=== PATIENT | male | born 1965 | race Caucasian/White ===

== ENCOUNTER 2016-08-26 11:02 | Emergency (ER) | payer OTHER ==
[2016-08-26] MEDS ORDERED: KETOROLAC TROMETHAMINE 30 MG/1ML VIAL IVP ONE (11:43)
[2016-08-26] MEDS ORDERED: BUTORPHANOL TARTRATE 2 MG/ML VIAL IV ONE ×2 (11:43→12:35)
[2016-08-26 11:57] LABS: BASOPHILS % 0.5 (0.0-1.5); EOSINOPHILS % 2.3 % (0.0-6.8); LYMPHOCYTES # 2.1 # k/uL (0.6-4.0); MEAN CORPUSCULAR HEMOGLOBIN 32.6 pg (28.0-34.0); MONOCYTES # 0.4 # k/uL (0.0-0.9); MONOCYTES % 6.7 % (0.0-11.0); NEUTROPHILS # 3.5 # k/uL (1.4-7.7)
[2016-08-26 12:13] LABS: eGFR (African) > 60; eGFR (Non-African) 52
--- NOTE | 2016-08-26 12:43 | ED Physician Documentation ---
Abdominal Pain - HISTORIAN Historian: patient - HPI Stated Complaint: blood pressure high, abdominal distension Chief Complaint: Abdominal Pain Onset: days ago (10) Duration: waxing, waning Context: denies: out of country travel, bad food, recent trauma Quality: pain Associated Symptoms: nausea. denies: fever, chills, vomiting Exacerbated by: nothing Relieved by: nothing Further Comments: yes (51 year old male patient presents with complaint of abdominal pain and hypertension. Patient states he was at [facility] for medication refills, was sent over for evaluation of HTN and abdominal pain. Patient reports 10 days of abdominal pain. Denies vomiting, c/o diarhea today.) - ROS CONST: no problems GI/: none CVS/RESP: none EYES/ENT: none MS/SKIN/LYMPH: none NEURO/PSYCH: none - SOCIAL HX Smoking History: cigarettes - FAMILY HX Family History: denies: none - PAST HX Past History: diverticulitis Other History: diabetes Type 2, other (PTSD, anger issues, Chrohns) Surgeries/Procedures: appendectomy, cholecystectomy, other (nephrectomy) Home Medications: Ambulatory Orders Medication Instructions Recorded Allopurinol [Zyloprim] 300 mg PO DAILY 08/26/16 Clonazepam 1 mg PO QID 08/26/16 Oxcarbazepine 300 mg PO BID 08/26/16 Paroxetine HCl [Paxil] 40 mg PO DAILY 08/26/16 Prazosin HCl [Minipress] 1 mg PO HS 08/26/16 Promethazine HCl [Phenergan] 25 mg PO Q6H PRN #30 tablet 08/26/16 Ranitidine HCl 150 mg PO BID 08/26/16 Allergies/Adverse Reactions: Allergies Allergy/AdvReac Type Severity Reaction Status Date / Time divalproex sodium Allergy Intermediate Hives Verified 08/26/16 12:08 [From Depakote] Sulfa (Sulfonamide Allergy Intermediate Throat Verified 08/26/16 12:09 Antibiotics) Swelling meperidine HCl [From Demerol] AdvReac Intermediate Dizziness Verified 08/26/16 12:08 - VITAL SIGNS Vital Signs: Vital Signs Temp Pulse Resp BP Pulse Ox 97.7 F 88 18 151/90 97 08/26/16 11:18 08/26/16 11:18 08/26/16 11:18 08/26/16 11:18 08/26/16 11:18 - REVIEWED ASSESSMENTS Nursing Assessment Reviewed: No Vitals Reviewed: No ED Results Lab/Radiology - Lab Results Lab Results: Lab Results 08/26/16 08/26/16 08/26/16 11:50 11:50 11:50 WBC 6.30 K/ul K/ul (4.00-12.00) RBC 4.09 M/ul M/ul (3.90-5.20) Hgb 13.3 g/dL g/dL (12.0-18.0) Hct 38.7 % % (37.0-53.0) MCV 94.5 fl fl (80.0-100.0) MCH 32.6 pg pg (28.0-34.0) MCHC 34.4 g/dL g/dL (30.0-36.0) RDW 13.7 % % (11.3-14.3) Plt Count 142 K/mm3 K/mm3 (130-400) Neut % (Auto) 55.1 % % (39.0-79.0) Lymph % (Auto) 33.6 % % (16.0-50.0) [place] % (Auto) 6.7 % % (0.0-11.0) Eos % (Auto) 2.3 % % (0.0-6.8) Baso % (Auto) 0.5 (0.0-1.5) Neut # 3.5 # k/uL # k/uL (1.4-7.7) Lymph # 2.1 # k/uL # k/uL (0.6-4.0) [place] # 0.4 # k/uL # k/uL (0.0-0.9) Eos # 0.1 # k/uL # k/uL (0.0-0.6) Baso # 0.0 # k/uL # k/uL (0.0-0.5) Reactive Lymphs % 1.8 % % (0.0-5.0) Reactive Lymphs # 0.1 # k/uL # k/uL (0.0-0.8) Sodium 141 mmol/L mmol/L (136-145) Potassium 4.0 mmol/L mmol/L (3.5-5.0) Chloride 111 mmol/L H mmol/L (98-110) Carbon Dioxide 28 mmol/L mmol/L (20-32) BUN 24 mg/dL mg/dL (10-26) Creatinine 1.5 mg/dL mg/dL (0.4-1.5) Estimated Creat Clear 139 Est GFR ( Amer) > 60 (60 - ) Est GFR (Non-Af Amer) 52 L (60 - ) Glucose 116 mg/dL H mg/dL (70-99) Calcium 9.1 mg/dL mg/dL (8.5-10.5) Total Bilirubin 0.3 mg/dL mg/dL (0.2-1.2) AST 18 U/L U/L (0-41) ALT 22 U/L U/L (0-45) Alkaline Phosphatase 77 U/L U/L (46-116) Troponin I < 0.03 ng/mL ng/mL (0.00-0.06) Total Protein 7.3 g/dL g/dL (6.0-8.5) Albumin 4.6 g/dL g/dL (3.0-5.5) - Orders Orders: ED Orders Category Date Time Status Place Saline Lock/IV NOW Care 08/26/16 11:22 Active CBC/PLATELET/DIFF Stat Lab 08/26/16 11:50 Completed CMP Stat Lab 08/26/16 11:50 Completed TROPONIN I (cTnI) Stat Lab 08/26/16 11:50 Completed UA W/MICRO IF INDICATED Stat Lab 08/26/16 11:22 Ordered Butorphanol Tartrate [Stadol] Med 08/26/16 11:43 Discontinued 1 mg IV NOW ONE Ketorolac Tromethamine [Toradol] Med 08/26/16 11:43 Discontinued 30 mg IVP NOW ONE EKG WITH COMPARISON Stat Ther 08/26/16 11:43 Ordered Abdominal Pain Physical Exam - Physical Exam General Appearance: mild distress EENT: eye inspection normal, MAX RESPIRATORY: no resp distress, chest non-tender, breath sounds normal CVS: reg rate & rhythm, heart sounds normal, equal pulses, no murmur, no gallop , PMI nml, no JVD, no friction rub, 24 ABDOMEN: soft, no organomegaly, no abdominal bruit, no distension, tenderness ( RUQ and LLQ ), abnormal bowel sounds (hypotension) SKIN: normal color, warm/dry, NR, INT, PAL, DR EXTREMITIES: non-tender, normal range of motion, no evidence of injury, no edema , J, 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: oriented X3, CN's nml as tested, motor nml, sensation nml Vital Signs: Vital Signs Temp Pulse Resp BP Pulse Ox 97.7 F 88 18 151/90 97 08/26/16 11:18 08/26/16 11:18 08/26/16 11:18 08/26/16 11:18 08/26/16 11:18 Discharge Clincal Impression: Abdominal pain Qualifiers: Abdominal location: generalized Qualified Code(s): R10.84 - Generalized abdominal pain Prescriptions: Promethazine HCl [Phenergan] 25 mg PO Q6H PRN #30 tablet PRN Reason: Nausea / Vomiting Additional Instructions: Diet: Clear liquids Sprite/7-up Juices apple, white grape Gatorade/Powerade Jello Popsicles When tolerating clear liquids, advance to bland diet - such as crackers , rice, bananas or toast Return to the emergency department or call your doctor, if you are having severe abdominal pain, fever >101.0, or if there is blood in the vomit or diarrhea, or you cannot keep down liquids or solid food. Fever: Use Tylenol or Ibuprofen as needed per package directions Tylenol 500mg po q4h prn pain Ibuprofen 800mg po TID prn pain - do not take for more than 4 days. Home Medications: Ambulatory Orders Allopurinol [Zyloprim] 300 mg PO DAILY 08/26/16 Clonazepam 1 mg PO QID 08/26/16 Oxcarbazepine 300 mg PO BID 08/26/16 Paroxetine HCl [Paxil] 40 mg PO DAILY 08/26/16 Prazosin HCl [Minipress] 1 mg PO HS 08/26/16 Promethazine HCl [Phenergan] 25 mg PO Q6H PRN #30 tablet 08/26/16 Ranitidine HCl 150 mg PO BID 08/26/16 Condition: Stable Disposition: 01 HOME, SELF-CARE Decision to Admit: NO Decision Time: 12:40
[2016-08-26 13:00] VITALS: BP 110/62
== END 2016-08-26 12:46 | disposition home or self-care (01) ==
LOC: ED 11:02
DX: R10.84 Generalized abdominal pain (principal)
CPT/HCPCS: 80053; 84484; 85025; 96374; 96375; 99283; J0595; J1885; S1016